=== PATIENT | male | born 1980 | race American Indian/Alaskan Native ===

== ENCOUNTER 2020-06-18 23:08 | Emergency (ER) | payer SELFPAY ==
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
== END 2020-06-18 23:34 | disposition left against medical advice (07) ==
LOC: ED 23:08
DX: D72.0 Genetic anomalies of leukocytes (principal); Z53.21 Procedure and treatment not carried out due to patient leaving prior to being seen by health care provider